=== PATIENT | female | born 1960 | race Caucasian/White ===

== ENCOUNTER → 2018-09-14 08:03 | Outpatient (CLI) | payer OTHER ==
[~2018-09-14 08:03] MED LIST: HYZAAR 50/12.51 TAB; METFORMIN HCL500 MG; NABUMETONE500 MG PO; PREDNISONE10 MG PO; TESSALON PERLE100 MG PO; TRAMADOL HCL-AP1 TAB PO; TUSSI PRES-B L120 M1 PO; ULTRACET PO; ZITHROMAX TRI-500 MG PO; ZYRTEC10 M3 PO
== END | disposition home or self-care (01) ==
LOC: LAB 08:03
DX: E11.8 Type 2 diabetes mellitus with unspecified complications (principal); E78.2 Mixed hyperlipidemia; E55.9 Vitamin D deficiency, unspecified; I11.9 Hypertensive heart disease without heart failure

== ENCOUNTER 2019-01-11 07:33 | Outpatient (CLI) | payer OTHER | END 2019-01-11 07:40 | disposition home or self-care (01) | LOC: LAB 07:33 | DX: D64.89 Other specified anemias (principal); N39.0 Urinary tract infection, site not specified; R10.9 Unspecified abdominal pain; E03.8 Other specified hypothyroidism; E78.49 Other hyperlipidemia; R80.8 Other proteinuria; R73.09 Other abnormal glucose; I11.9 Hypertensive heart disease without heart failure; E11.8 Type 2 diabetes mellitus with unspecified complications; E78.2 Mixed hyperlipidemia ==

== ENCOUNTER 2019-04-25 10:11 | Outpatient (CLI) | payer OTHER | END 2019-04-25 10:12 | disposition home or self-care (01) | LOC: RAD 10:11 | DX: M54.89 Other dorsalgia (principal) ==

== ENCOUNTER 2019-08-16 08:37 | Outpatient (CLI) | payer OTHER | END 2019-08-16 08:42 | disposition home or self-care (01) | LOC: LAB 08:37 | DX: D64.89 Other specified anemias (principal); N39.0 Urinary tract infection, site not specified; R10.84 Generalized abdominal pain; E03.8 Other specified hypothyroidism; E78.49 Other hyperlipidemia; R07.89 Other chest pain; E11.9 Type 2 diabetes mellitus without complications; I10 Essential (primary) hypertension; Z13.6 Encounter for screening for cardiovascular disorders ==

== ENCOUNTER 2020-07-06 11:00 | Outpatient (CLI) | payer OTHER | END 2020-07-06 13:31 | disposition home or self-care (01) | LOC: PPH VACUNA 11:00 | DX: Z23 Encounter for immunization (principal) ==

== ENCOUNTER → 2020-08-25 | Outpatient (CLI) | payer OTHER | END | disposition home or self-care (01) | LOC: OFIC 805 13:56 | PROVIDERS: ATTEND Otolaryngology | DX: H60.8X1 Other otitis externa, right ear (principal); H90.41 Sensorineural hearing loss, unilateral, right ear, with unrestricted hearing on the contralateral side; H61.21 Impacted cerumen, right ear ==

== ENCOUNTER 2020-09-24 16:42 | Outpatient (CLI) | payer OTHER | END 2020-09-24 18:00 | disposition home or self-care (01) | LOC: LAB 16:42 | DX: Z03.818 Encounter for observation for suspected exposure to other biological agents ruled out (principal); R05 Cough; R06.02 Shortness of breath; R50.9 Fever, unspecified ==

== ENCOUNTER → 2021-07-19 | Outpatient (CLI) | payer OTHER | END | disposition home or self-care (01) | LOC: PPH VACUNA 08:00 | PROVIDERS: ATTEND Emergency Medicine Pediatric Emergency Medicine | DX: Z23 Encounter for immunization (principal) ==

== ENCOUNTER 2021-07-28 12:55 | Outpatient (CLI) | payer OTHER | END 2021-07-28 13:13 | disposition home or self-care (01) | LOC: PPH VACUNA 12:55 | PROVIDERS: ATTEND Emergency Medicine Pediatric Emergency Medicine | DX: Z23 Encounter for immunization (principal) ==

== ENCOUNTER 2022-05-27 08:23 | Emergency (ER) | payer OTHER ==
[~2022-05-27] VITALS: Ht 162.6 cm; Wt 107.5 kg
[2022-05-27] MEDS ORDERED: ACETAMINOPHEN650 M2 PO (11:36)
[2022-05-27] MEDS ORDERED: OSEL75CA PO (11:36)
[2022-05-27] MEDS ORDERED: MUCINEX DM ER1 EACH PO (11:36)
[2022-05-27] MEDS ORDERED: MOLNUPIRAVIR (200 MG PO (11:36)
[2022-05-27] MEDS ORDERED: XOPENEX0.63 MG/3 IH (11:38)
== END 2022-05-27 11:44 | disposition home or self-care (01) ==
LOC: ER 08:23
DX: U07.1 COVID-19 (principal); J11.1 Influenza due to unidentified influenza virus with other respiratory manifestations; E11.65 Type 2 diabetes mellitus with hyperglycemia; Z79.84 Long term (current) use of oral hypoglycemic drugs; I10 Essential (primary) hypertension; Z88.8 Allergy status to other drugs, medicaments and biological substances

== ENCOUNTER 2022-06-21 08:00 | Outpatient (CLI) | payer OTHER ==
[~2022-06-21 08:00] MED LIST changes: +ACETAMINOPHEN650 M2 PO; +MOLNUPIRAVIR (200 MG PO; +MUCINEX DM ER1 EACH PO; +OSEL75CA PO; +XOPENEX0.63 MG/3 IH
== END 2022-06-21 08:05 | disposition home or self-care (01) ==
LOC: PPH VACUNA 08:00
PROVIDERS: ATTEND Emergency Medicine Pediatric Emergency Medicine
DX: Z23 Encounter for immunization (principal)

== ENCOUNTER 2022-07-06 14:07 | Outpatient (CLI) | payer OTHER | END 2022-07-06 14:16 | disposition home or self-care (01) | LOC: MAMO-SONO 14:07 | PROVIDERS: ATTEND General Practice | DX: Z12.31 Encounter for screening mammogram for malignant neoplasm of breast (principal); N64.4 Mastodynia ==

== ENCOUNTER 2022-07-18 07:41 | Outpatient (CLI) | payer OTHER | END 2022-07-18 07:46 | disposition home or self-care (01) | LOC: NUCLEAR 07:41 | PROVIDERS: ATTEND Internal Medicine Cardiovascular Disease | DX: M81.0 Age-related osteoporosis without current pathological fracture (principal); E55.9 Vitamin D deficiency, unspecified; Z88.5 Allergy status to narcotic agent ==

== ENCOUNTER 2023-06-21 | Outpatient (CLI) | payer OTHER | END 2023-06-21 00:15 | disposition home or self-care (01) | LOC: PPH VACUNA | PROVIDERS: ATTEND Emergency Medicine Pediatric Emergency Medicine | DX: Z23 Encounter for immunization (principal) | CPT/HCPCS: 90686; G0008 ==

== ENCOUNTER 2023-06-24 14:15 | Emergency (ER) | payer OTHER ==
[~2023-06-24] VITALS: Ht 162.6 cm; Wt 99.3 kg
== END 2023-06-24 20:20 | disposition home or self-care (01) ==
LOC: ER 14:15
PROVIDERS: Emergency Medicine
DX: B34.9 Viral infection, unspecified (principal); Z88.8 Allergy status to other drugs, medicaments and biological substances